=== PATIENT | male | born 1965 | race Caucasian/White ===

== ENCOUNTER 2020-10-19 15:47 | Inpatient (IN) | payer OTHER ==
[2020-10-19 19:03] VITALS: BMI 28.0
[2020-10-19] MEDS ORDERED: MAGNESIUM CITRATE 300 ML BOTTLE PO PRN (22:35)
[2020-10-19] MEDS ORDERED: ACETAMINOPHEN 325 MG TABLET (FP) PO PRN ×2 (22:35)
[2020-10-19] MEDS ORDERED: BISMUTH SUBSALICYLATE 524 MG/30 ML UD PO PRN (22:35)
[2020-10-19] MEDS ORDERED: METHOCARBAMOL 500 MG TABLET PO PRN (22:35)
[2020-10-19] MEDS ORDERED: MENTHOL/PHENOL 1 EACH UD MM PRN (22:35)
[2020-10-19] MEDS ORDERED: MAG HYDROX/AL HYDROX/SIMETH 30 ML UNIT-DOSE CUP PO PRN (22:35)
[2020-10-19] MEDS ORDERED: ONDANSETRON *ODT* 4 MG TABLET SL PRN (22:35)
[2020-10-19] MEDS ORDERED: MAGNESIUM HYDROX 2400MG/30ML ORAL SUSPENSION 30 ML CUP PO PRN (22:35)
[2020-10-19] MEDS ORDERED: chlordiazePOXIDE HCL 25 MG CAPSULE PO PRN (22:35)
[2020-10-19] MEDS ORDERED: IBUPROFEN 400 MG TABLET (FP) PO PRN (22:35)
[2020-10-20] MEDS: chlordiazePOXIDE HCL 25 MG CAPSULE PO SCH ×5 (03:15→22:01)
[2020-10-20] MEDS ORDERED: chlordiazePOXIDE HCL 25 MG CAPSULE ONE ×2 (06:16→09:59)
[2020-10-20] MEDS ORDERED: ASPIRIN 81 MG CHEWABLE TABLETS ONE (09:59)
[2020-10-20] MEDS: ASPIRIN 81 MG CHEWABLE TABLETS PO SCH (10:10)
[2020-10-20] MEDS: PRENATAL VITAMINS W/ FOLIC ACID TABLET (FP) PO SCH (10:11)
[2020-10-20 11:44] LABS: HEMOGLOBIN 13.2 GM/dL (11.7-16.9); MCH 27.6 pg (25.7-33.7); MCHC 33.9 g/dl (32.0-35.9); MEAN CELL VOLUME 81.3 fl (80-96); MEAN PLT VOLUME 8.2 fl (7.5-11.1); PLATELET COUNT 301 K/MM3 (134-434); RBC 4.79 M/mm3 (4.00-5.60); RDW 18.9 % (11.9-15.9); WHITE BLOOD COUNT 3.6 K/mm3 (4.0-10.0)
[2020-10-20 12:26] LABS: POTASSIUM 3.9 mmol/L (3.5-5.1)
[2020-10-20 12:31] LABS: BLOOD UREA NITROGEN 6.3 mg/dL (7-18); CALCIUM 8.6 mg/dL (8.5-10.1)
[2020-10-20 12:32] LABS: ALBUMIN 3.9 g/dl (3.4-5.0)
[2020-10-20 12:35] LABS: CREATININE 0.8 mg/dL (0.55-1.3)
[2020-10-20 12:37] LABS: BILIRUBIN,TOTAL 0.4 mg/dL (0.2-1); TOT PROT 8.5 g/dl (6.4-8.2)
[2020-10-20] MEDS: ATENOLOL 25 MG TABLET (FP) PO SCH (14:10)
[2020-10-20] MEDS: ATORVASTATIN CA 40 MG TABLET (FP) PO SCH (22:00)
[2020-10-20] MEDS: THIAMINE HCL 100 MG TABLET (FP) PO SCH (22:00)
[2020-10-20] MEDS: MELATONIN 5 MG TABLETS PO SCH (22:02)
[2020-10-21] MEDS: chlordiazePOXIDE HCL 25 MG CAPSULE PO SCH ×4 (05:27→22:44)
[2020-10-21] MEDS: ASPIRIN 81 MG CHEWABLE TABLETS PO SCH (10:20)
[2020-10-21] MEDS: PRENATAL VITAMINS W/ FOLIC ACID TABLET (FP) PO SCH (10:20)
[2020-10-21] MEDS: ATENOLOL 25 MG TABLET (FP) PO SCH (14:12)
[2020-10-21 14:20] LABS: POTASSIUM 3.4 mmol/L (3.5-5.1)
[2020-10-21 14:24] LABS: CALCIUM 8.5 mg/dL (8.5-10.1)
[2020-10-21 14:25] LABS: ALBUMIN 3.7 g/dl (3.4-5.0); BLOOD UREA NITROGEN 8.4 mg/dL (7-18)
[2020-10-21 14:28] LABS: CREATININE 0.8 mg/dL (0.55-1.3)
[2020-10-21 14:30] LABS: BILIRUBIN,TOTAL 0.5 mg/dL (0.2-1); TOT PROT 7.8 g/dl (6.4-8.2)
[2020-10-21] MEDS: THIAMINE HCL 100 MG TABLET (FP) PO SCH (22:44)
[2020-10-21] MEDS: MELATONIN 5 MG TABLETS PO SCH (22:44)
[2020-10-21] MEDS: ATORVASTATIN CA 40 MG TABLET (FP) PO SCH (22:45)
[2020-10-22] MEDS ORDERED: chlordiazePOXIDE HCL 10 MG CAPSULE PO PRN
[2020-10-22] MEDS: chlordiazePOXIDE HCL 10 MG CAPSULE PO SCH ×4 (05:21→22:37)
[2020-10-22] MEDS: POTASSIUM CHLORIDE ORAL LIQUID 20 MEQ/15 ML PO SCH ×2 (10:27→22:36)
[2020-10-22] MEDS: PRENATAL VITAMINS W/ FOLIC ACID TABLET (FP) PO SCH (10:27)
[2020-10-22] MEDS: ATENOLOL 25 MG TABLET (FP) PO SCH (10:28)
[2020-10-22] MEDS: ASPIRIN 81 MG CHEWABLE TABLETS PO SCH (10:29)
[2020-10-22] MEDS: THIAMINE HCL 100 MG TABLET (FP) PO SCH (22:36)
[2020-10-22] MEDS: ATORVASTATIN CA 40 MG TABLET (FP) PO SCH (22:36)
[2020-10-22] MEDS: MELATONIN 5 MG TABLETS PO SCH (22:36)
[2020-10-22] MEDS: QUEtiapine FUMARATE 100 MG TABLET (FP) PO SCH (22:38)
[2020-10-23] MEDS: chlordiazePOXIDE HCL 10 MG CAPSULE PO SCH ×2 (05:29→18:08)
[2020-10-23] MEDS: ASPIRIN 81 MG CHEWABLE TABLETS PO SCH (10:21)
[2020-10-23] MEDS: PRENATAL VITAMINS W/ FOLIC ACID TABLET (FP) PO SCH (10:21)
[2020-10-23] MEDS: ATENOLOL 25 MG TABLET (FP) PO SCH (11:24)
[2020-10-23] MEDS: POTASSIUM CHLORIDE ORAL LIQUID 20 MEQ/15 ML PO SCH ×2 (13:19→22:20)
[2020-10-23] MEDS: QUEtiapine FUMARATE 100 MG TABLET (FP) PO SCH (22:20)
[2020-10-23] MEDS: ATORVASTATIN CA 40 MG TABLET (FP) PO SCH (22:20)
[2020-10-23] MEDS: THIAMINE HCL 100 MG TABLET (FP) PO SCH (22:20)
[2020-10-23] MEDS: MELATONIN 5 MG TABLETS PO SCH (22:21)
[2020-10-24] MEDS ORDERED: chlordiazePOXIDE HCL 10 MG CAPSULE PO ONE (05:00)
[2020-10-24 09:41] VITALS: BP 125/71; PULSE 101; TEMP 97.6
[2020-10-24] MEDS: ATENOLOL 25 MG TABLET (FP) PO SCH (10:20)
[2020-10-24] MEDS: PRENATAL VITAMINS W/ FOLIC ACID TABLET (FP) PO SCH (10:20)
[2020-10-24] MEDS: ASPIRIN 81 MG CHEWABLE TABLETS PO SCH (10:20)
[2020-10-24 11:05] LABS: POTASSIUM 4.3 mmol/L (3.5-5.1)
[2020-10-24 11:06] LABS: CALCIUM 8.4 mg/dL (8.5-10.1)
[2020-10-24 11:07] LABS: BLOOD UREA NITROGEN 5.4 mg/dL (7-18)
[2020-10-24 11:09] LABS: CREATININE 0.8 mg/dL (0.55-1.3)
== END 2020-10-24 11:34 | disposition other institution (70) | DRG 775 ==
LOC: YASAS 15:47 → Y6N 10-20 11:52
PROVIDERS: ADMIT Allergy & Immunology; ATTEND Allergy & Immunology
PROC: HZ2ZZZZ Detoxification Services for Substance Abuse Treatment (ICD-10-PCS; principal; 2020-10-20)
DX: F10.230 Alcohol dependence with withdrawal, uncomplicated (principal); F31.9 Bipolar disorder, unspecified; F19.24 Other psychoactive substance dependence with psychoactive substance-induced mood disorder; E87.1 Hypo-osmolality and hyponatremia; F41.9 Anxiety disorder, unspecified; E78.5 Hyperlipidemia, unspecified; G47.00 Insomnia, unspecified; H91.91 Unspecified hearing loss, right ear; I10 Essential (primary) hypertension; I69.851 Hemiplegia and hemiparesis following other cerebrovascular disease affecting right dominant side; K21.9 Gastro-esophageal reflux disease without esophagitis; G40.509 Epileptic seizures related to external causes, not intractable, without status epilepticus; N40.0 Benign prostatic hyperplasia without lower urinary tract symptoms; Z87.891 Personal history of nicotine dependence; Z91.011 Allergy to milk products; Z91.5 Personal history of self-harm
CPT/HCPCS: 36415; 80048; 80053; 82962; 85027; 86780; 93005; 93010; C9803; U0003

== ENCOUNTER 2020-10-24 11:38 | Inpatient (IN) | payer OTHER ==
[2020-10-24] MEDS ORDERED: FLU VACCINE (FLULAVAL) PF 60 MCG/0.5 ML SYRINGE 2020-2021 IM ONE (12:34)
[2020-10-24] MEDS ORDERED: ACETAMINOPHEN 325 MG TABLET (FP) PO PRN (13:20)
[2020-10-24] MEDS ORDERED: IBUPROFEN 400 MG TABLET (FP) PO PRN (13:20)
[2020-10-24] MEDS ORDERED: MAGNESIUM CITRATE 300 ML BOTTLE PO PRN (13:20)
[2020-10-24] MEDS ORDERED: LOPERAMIDE HCL 2 MG CAPSULE PO PRN (13:20)
[2020-10-24] MEDS ORDERED: MENTHOL/PHENOL 1 EACH UD MM PRN (13:20)
[2020-10-24] MEDS ORDERED: guaiFENesin 200 MG/10 ML 10 ML UNIT-DOSE CUPS PO PRN (13:20)
[2020-10-24] MEDS ORDERED: P-EPHED 60MG/TRIPROLIDI 2.5MG TABLET PO PRN (13:20)
[2020-10-24] MEDS ORDERED: MAGNESIUM HYDROX 2400MG/30ML ORAL SUSPENSION 30 ML CUP PO PRN (13:20)
[2020-10-24] MEDS: MELATONIN 5 MG TABLETS PO SCH (21:03)
[2020-10-24] MEDS: ATORVASTATIN CA 40 MG TABLET (FP) PO SCH (21:03)
[2020-10-24] MEDS: QUEtiapine FUMARATE 100 MG TABLET (FP) PO SCH (21:03)
[2020-10-24] MEDS: THIAMINE HCL 100 MG TABLET (FP) PO SCH (21:03)
[2020-10-24] MEDS ORDERED: QUEtiapine FUMARATE 300 MG TABLET PO SCH (22:00)
[2020-10-24] MEDS ORDERED: GABAPENTIN 300 MG CAPSULE PO SCH (22:00)
[2020-10-24] MEDS ORDERED: TOPIRAMATE 100 MG TABLET PO SCH (22:00)
[2020-10-25] MEDS ORDERED: VENLAFAXINE HCL 50 MG TABLET PO SCH (10:00)
[2020-10-25] MEDS: PRENATAL VITAMINS W/ FOLIC ACID TABLET (FP) PO SCH (10:12)
[2020-10-25] MEDS: ASPIRIN 81 MG CHEWABLE TABLETS PO SCH (10:12)
[2020-10-25] MEDS: ATENOLOL 25 MG TABLET (FP) PO SCH (10:12)
[2020-10-25] MEDS ORDERED: FLU VACCINE (FLULAVAL) PF 60 MCG/0.5 ML SYRINGE 2020-2021 IM ONE (12:00)
[2020-10-25] MEDS: SODIUM CHLORIDE 1 GM TABLET PO SCH (21:05)
[2020-10-25] MEDS: ATORVASTATIN CA 40 MG TABLET (FP) PO SCH (21:05)
[2020-10-25] MEDS: hydrOXYzine PAMOATE 25 MG CAPSULE (FP) PO PRN (21:05)
[2020-10-25] MEDS: QUEtiapine FUMARATE 100 MG TABLET (FP) PO SCH (21:05)
[2020-10-25] MEDS: MELATONIN 5 MG TABLETS PO SCH (21:05)
[2020-10-25] MEDS: THIAMINE HCL 100 MG TABLET (FP) PO SCH (21:22)
[2020-10-26] MEDS: SODIUM CHLORIDE 1 GM TABLET PO SCH ×2 (09:50→21:18)
[2020-10-26] MEDS: PRENATAL VITAMINS W/ FOLIC ACID TABLET (FP) PO SCH (09:50)
[2020-10-26] MEDS: ATENOLOL 25 MG TABLET (FP) PO SCH (09:50)
[2020-10-26] MEDS: ASPIRIN 81 MG CHEWABLE TABLETS PO SCH (09:50)
[2020-10-26] MEDS: MAG HYDROX/AL HYDROX/SIMETH 30 ML UNIT-DOSE CUP PO PRN ×2 (11:57→21:21)
[2020-10-26] MEDS ORDERED: QUEtiapine FUMARATE 50 MG TABLET ONE (19:53)
[2020-10-26] MEDS: MELATONIN 5 MG TABLETS PO SCH (21:17)
[2020-10-26] MEDS: QUEtiapine FUMARATE 100 MG TABLET (FP) PO SCH (21:18)
[2020-10-26] MEDS: THIAMINE HCL 100 MG TABLET (FP) PO SCH (21:19)
[2020-10-26] MEDS: ATORVASTATIN CA 40 MG TABLET (FP) PO SCH (21:19)
[2020-10-27] MEDS: hydrOXYzine PAMOATE 25 MG CAPSULE (FP) PO PRN (10:17)
[2020-10-27] MEDS: PRENATAL VITAMINS W/ FOLIC ACID TABLET (FP) PO SCH (10:17)
[2020-10-27] MEDS: ASPIRIN 81 MG CHEWABLE TABLETS PO SCH (10:17)
[2020-10-27] MEDS: SODIUM CHLORIDE 1 GM TABLET PO SCH ×2 (10:18→21:08)
[2020-10-27] MEDS: ATENOLOL 25 MG TABLET (FP) PO SCH (10:18)
[2020-10-27 12:18] LABS: POTASSIUM 4.1 mmol/L (3.5-5.1)
[2020-10-27 12:21] LABS: CALCIUM 8.9 mg/dL (8.5-10.1)
[2020-10-27 12:26] LABS: CREATININE 0.7 mg/dL (0.55-1.3)
[2020-10-27] MEDS: QUEtiapine FUMARATE 100 MG TABLET (FP) PO SCH (21:08)
[2020-10-27] MEDS: THIAMINE HCL 100 MG TABLET (FP) PO SCH (21:08)
[2020-10-27] MEDS: ATORVASTATIN CA 40 MG TABLET (FP) PO SCH (21:08)
[2020-10-27] MEDS: MELATONIN 5 MG TABLETS PO SCH (21:09)
[2020-10-27] MEDS: MAG HYDROX/AL HYDROX/SIMETH 30 ML UNIT-DOSE CUP PO PRN (21:12)
[2020-10-28] MEDS: ATENOLOL 25 MG TABLET (FP) PO SCH (10:14)
[2020-10-28] MEDS: ASPIRIN 81 MG CHEWABLE TABLETS PO SCH (10:14)
[2020-10-28] MEDS: PRENATAL VITAMINS W/ FOLIC ACID TABLET (FP) PO SCH (10:14)
[2020-10-28] MEDS: SODIUM CHLORIDE 1 GM TABLET PO SCH ×2 (10:14→21:36)
[2020-10-28] MEDS: MAG HYDROX/AL HYDROX/SIMETH 30 ML UNIT-DOSE CUP PO PRN ×2 (10:15→21:36)
[2020-10-28] MEDS: QUEtiapine FUMARATE 100 MG TABLET (FP) PO SCH (21:34)
[2020-10-28] MEDS: ATORVASTATIN CA 40 MG TABLET (FP) PO SCH (21:34)
[2020-10-28] MEDS: MELATONIN 5 MG TABLETS PO SCH (21:35)
[2020-10-28] MEDS: THIAMINE HCL 100 MG TABLET (FP) PO SCH (21:35)
[2020-10-29] MEDS: hydrOXYzine PAMOATE 25 MG CAPSULE (FP) PO PRN (10:19)
[2020-10-29] MEDS: ASPIRIN 81 MG CHEWABLE TABLETS PO SCH (10:19)
[2020-10-29] MEDS: SODIUM CHLORIDE 1 GM TABLET PO SCH ×2 (10:19→21:08)
[2020-10-29] MEDS: PRENATAL VITAMINS W/ FOLIC ACID TABLET (FP) PO SCH (10:19)
[2020-10-29] MEDS: ATENOLOL 25 MG TABLET (FP) PO SCH (10:19)
[2020-10-29] MEDS: MAG HYDROX/AL HYDROX/SIMETH 30 ML UNIT-DOSE CUP PO PRN ×2 (10:20→21:09)
[2020-10-29] MEDS: THIAMINE HCL 100 MG TABLET (FP) PO SCH (21:08)
[2020-10-29] MEDS: QUEtiapine FUMARATE 100 MG TABLET (FP) PO SCH (21:08)
[2020-10-29] MEDS: MELATONIN 5 MG TABLETS PO SCH (21:08)
[2020-10-29] MEDS: ATORVASTATIN CA 40 MG TABLET (FP) PO SCH (21:08)
[2020-10-30] MEDS: hydrOXYzine PAMOATE 25 MG CAPSULE (FP) PO PRN (10:33)
[2020-10-30] MEDS: PANTOPRAZOLE 40 MG TABLET PO SCH (10:33)
[2020-10-30] MEDS: PRENATAL VITAMINS W/ FOLIC ACID TABLET (FP) PO SCH (10:33)
[2020-10-30] MEDS: SODIUM CHLORIDE 1 GM TABLET PO SCH ×2 (10:33→21:38)
[2020-10-30] MEDS: ATENOLOL 25 MG TABLET (FP) PO SCH (10:33)
[2020-10-30] MEDS: ASPIRIN 81 MG CHEWABLE TABLETS PO SCH (10:33)
[2020-10-30] MEDS: MAG HYDROX/AL HYDROX/SIMETH 30 ML UNIT-DOSE CUP PO PRN (10:35)
[2020-10-30 11:20] LABS: POTASSIUM 4.4 mmol/L (3.5-5.1)
[2020-10-30 11:23] LABS: CALCIUM 8.8 mg/dL (8.5-10.1)
[2020-10-30 11:24] LABS: BLOOD UREA NITROGEN 4.8 mg/dL (7-18)
[2020-10-30 11:25] LABS: CREATININE 0.7 mg/dL (0.55-1.3)
[2020-10-30 12:15] LABS: HIV INTERPRETATION NEGATIVE (NEGATIVE)
[2020-10-30] MEDS: THIAMINE HCL 100 MG TABLET (FP) PO SCH (21:38)
[2020-10-30] MEDS: ATORVASTATIN CA 40 MG TABLET (FP) PO SCH (21:38)
[2020-10-30] MEDS: MELATONIN 5 MG TABLETS PO SCH (21:38)
[2020-10-30] MEDS: QUEtiapine FUMARATE 100 MG TABLET (FP) PO SCH (21:38)
[2020-10-31] MEDS: ASPIRIN 81 MG CHEWABLE TABLETS PO SCH (10:14)
[2020-10-31] MEDS: PRENATAL VITAMINS W/ FOLIC ACID TABLET (FP) PO SCH (10:14)
[2020-10-31] MEDS: PANTOPRAZOLE 40 MG TABLET PO SCH (10:14)
[2020-10-31] MEDS: ATENOLOL 25 MG TABLET (FP) PO SCH (10:14)
[2020-10-31] MEDS: SODIUM CHLORIDE 1 GM TABLET PO SCH ×2 (10:14→21:10)
[2020-10-31] MEDS: hydrOXYzine PAMOATE 25 MG CAPSULE (FP) PO PRN (10:14)
[2020-10-31] MEDS: QUEtiapine FUMARATE 100 MG TABLET (FP) PO SCH (21:10)
[2020-10-31] MEDS: MELATONIN 5 MG TABLETS PO SCH (21:10)
[2020-10-31] MEDS: THIAMINE HCL 100 MG TABLET (FP) PO SCH (21:10)
[2020-10-31] MEDS: ATORVASTATIN CA 40 MG TABLET (FP) PO SCH (21:10)
[2020-11-01] MEDS ORDERED: PT OWN MED DRAWER 7, Y5N ONE (09:16)
[2020-11-01] MEDS: ATENOLOL 25 MG TABLET (FP) PO SCH (10:22)
[2020-11-01] MEDS: SODIUM CHLORIDE 1 GM TABLET PO SCH ×2 (10:22→21:32)
[2020-11-01] MEDS: ASPIRIN 81 MG CHEWABLE TABLETS PO SCH (10:22)
[2020-11-01] MEDS: PANTOPRAZOLE 40 MG TABLET PO SCH (10:22)
[2020-11-01] MEDS: PRENATAL VITAMINS W/ FOLIC ACID TABLET (FP) PO SCH (10:22)
[2020-11-01] MEDS: MELATONIN 5 MG TABLETS PO SCH (21:31)
[2020-11-01] MEDS: QUEtiapine FUMARATE 100 MG TABLET (FP) PO SCH (21:31)
[2020-11-01] MEDS: ATORVASTATIN CA 40 MG TABLET (FP) PO SCH (21:31)
[2020-11-01] MEDS: THIAMINE HCL 100 MG TABLET (FP) PO SCH (21:31)
[2020-11-02] MEDS: ASPIRIN 81 MG CHEWABLE TABLETS PO SCH (10:04)
[2020-11-02] MEDS: PRENATAL VITAMINS W/ FOLIC ACID TABLET (FP) PO SCH (10:04)
[2020-11-02] MEDS: ATENOLOL 25 MG TABLET (FP) PO SCH (10:05)
[2020-11-02] MEDS: PANTOPRAZOLE 40 MG TABLET PO SCH (10:05)
[2020-11-02] MEDS: SODIUM CHLORIDE 1 GM TABLET PO SCH ×2 (10:05→21:06)
[2020-11-02] MEDS: QUEtiapine FUMARATE 100 MG TABLET (FP) PO SCH (21:05)
[2020-11-02] MEDS: THIAMINE HCL 100 MG TABLET (FP) PO SCH (21:05)
[2020-11-02] MEDS: MELATONIN 5 MG TABLETS PO SCH (21:05)
[2020-11-02] MEDS: ATORVASTATIN CA 40 MG TABLET (FP) PO SCH (21:05)
[2020-11-03] MEDS: PRENATAL VITAMINS W/ FOLIC ACID TABLET (FP) PO SCH (10:17)
[2020-11-03] MEDS: SODIUM CHLORIDE 1 GM TABLET PO SCH ×2 (10:17→21:37)
[2020-11-03] MEDS: ATENOLOL 25 MG TABLET (FP) PO SCH (10:17)
[2020-11-03] MEDS: PANTOPRAZOLE 40 MG TABLET PO SCH (10:17)
[2020-11-03] MEDS: hydrOXYzine PAMOATE 25 MG CAPSULE (FP) PO PRN (10:17)
[2020-11-03] MEDS: ASPIRIN 81 MG CHEWABLE TABLETS PO SCH (10:17)
[2020-11-03] MEDS: THIAMINE HCL 100 MG TABLET (FP) PO SCH (21:36)
[2020-11-03] MEDS: MELATONIN 5 MG TABLETS PO SCH (21:36)
[2020-11-03] MEDS: ATORVASTATIN CA 40 MG TABLET (FP) PO SCH (21:36)
[2020-11-03] MEDS: QUEtiapine FUMARATE 100 MG TABLET (FP) PO SCH (21:37)
[2020-11-04] MEDS: PRENATAL VITAMINS W/ FOLIC ACID TABLET (FP) PO SCH (10:09)
[2020-11-04] MEDS: PANTOPRAZOLE 40 MG TABLET PO SCH (10:09)
[2020-11-04] MEDS: ATENOLOL 25 MG TABLET (FP) PO SCH (10:09)
[2020-11-04] MEDS: ASPIRIN 81 MG CHEWABLE TABLETS PO SCH (10:09)
[2020-11-04] MEDS: hydrOXYzine PAMOATE 25 MG CAPSULE (FP) PO PRN (10:09)
[2020-11-04] MEDS: SODIUM CHLORIDE 1 GM TABLET PO SCH ×2 (10:10→21:03)
[2020-11-04] MEDS: QUEtiapine FUMARATE 100 MG TABLET (FP) PO SCH (21:03)
[2020-11-04] MEDS: MELATONIN 5 MG TABLETS PO SCH (21:03)
[2020-11-04] MEDS: THIAMINE HCL 100 MG TABLET (FP) PO SCH (21:03)
[2020-11-04] MEDS: ATORVASTATIN CA 40 MG TABLET (FP) PO SCH (21:03)
[2020-11-05] MEDS: SODIUM CHLORIDE 1 GM TABLET PO SCH ×2 (10:05→21:47)
[2020-11-05] MEDS: ATENOLOL 25 MG TABLET (FP) PO SCH (10:05)
[2020-11-05] MEDS: PANTOPRAZOLE 40 MG TABLET PO SCH (10:05)
[2020-11-05] MEDS: PRENATAL VITAMINS W/ FOLIC ACID TABLET (FP) PO SCH (10:05)
[2020-11-05] MEDS: hydrOXYzine PAMOATE 25 MG CAPSULE (FP) PO PRN (10:05)
[2020-11-05] MEDS: ASPIRIN 81 MG CHEWABLE TABLETS PO SCH (10:05)
[2020-11-05 20:55] VITALS: TEMP 97.9
[2020-11-05] MEDS: ATORVASTATIN CA 40 MG TABLET (FP) PO SCH (21:47)
[2020-11-05] MEDS: THIAMINE HCL 100 MG TABLET (FP) PO SCH (21:47)
[2020-11-05] MEDS: QUEtiapine FUMARATE 100 MG TABLET (FP) PO SCH (21:47)
[2020-11-05] MEDS: MELATONIN 5 MG TABLETS PO SCH (21:48)
[2020-11-06] MEDS: PRENATAL VITAMINS W/ FOLIC ACID TABLET (FP) PO SCH (10:35)
[2020-11-06] MEDS: ASPIRIN 81 MG CHEWABLE TABLETS PO SCH (10:35)
[2020-11-06] MEDS: ATENOLOL 25 MG TABLET (FP) PO SCH (10:35)
[2020-11-06] MEDS: hydrOXYzine PAMOATE 25 MG CAPSULE (FP) PO PRN (10:35)
[2020-11-06] MEDS: SODIUM CHLORIDE 1 GM TABLET PO SCH ×2 (10:35→21:04)
[2020-11-06 10:37] VITALS: PULSE 88
[2020-11-06] MEDS: PANTOPRAZOLE 40 MG TABLET PO SCH (10:50)
[2020-11-06] MEDS: THIAMINE HCL 100 MG TABLET (FP) PO SCH (21:04)
[2020-11-06] MEDS: QUEtiapine FUMARATE 100 MG TABLET (FP) PO SCH (21:04)
[2020-11-06] MEDS: ATORVASTATIN CA 40 MG TABLET (FP) PO SCH (21:04)
[2020-11-06] MEDS: MELATONIN 5 MG TABLETS PO SCH (21:04)
[2020-11-07 07:46] VITALS: BP 113/80
[2020-11-07] MEDS: ASPIRIN 81 MG CHEWABLE TABLETS PO SCH (09:24)
[2020-11-07] MEDS: PRENATAL VITAMINS W/ FOLIC ACID TABLET (FP) PO SCH (09:24)
[2020-11-07] MEDS: PANTOPRAZOLE 40 MG TABLET PO SCH (09:24)
[2020-11-07] MEDS: SODIUM CHLORIDE 1 GM TABLET PO SCH (09:24)
[2020-11-07] MEDS: ATENOLOL 25 MG TABLET (FP) PO SCH (09:25)
== END 2020-11-07 09:26 | disposition home or self-care (01) | DRG 772 ==
LOC: YASAS 11:38 → Y3W 11:39
PROVIDERS: ADMIT Allergy & Immunology; ATTEND Allergy & Immunology
PROC: HZ42ZZZ Group Counseling for Substance Abuse Treatment, Cognitive-Behavioral (ICD-10-PCS; principal; 2020-10-24)
DX: F10.20 Alcohol dependence, uncomplicated (principal); F39 Unspecified mood [affective] disorder; F32.9 Major depressive disorder, single episode, unspecified; F41.9 Anxiety disorder, unspecified; E87.1 Hypo-osmolality and hyponatremia; G47.00 Insomnia, unspecified; I10 Essential (primary) hypertension; H91.92 Unspecified hearing loss, left ear; E78.5 Hyperlipidemia, unspecified; M19.90 Unspecified osteoarthritis, unspecified site; N40.0 Benign prostatic hyperplasia without lower urinary tract symptoms; I69.851 Hemiplegia and hemiparesis following other cerebrovascular disease affecting right dominant side; Z87.891 Personal history of nicotine dependence; Z86.69 Personal history of other diseases of the nervous system and sense organs; Z99.89 Dependence on other enabling machines and devices; Z91.011 Allergy to milk products
CPT/HCPCS: 36415; 80048; 84295; 84443; 86803; 87389; 93005; 93010; C9803; G0008; Q2036; U0003